=== PATIENT | male | born 1955 | race African-American/Black ===

== ENCOUNTER 2017-08-04 05:43 | Emergency (ER) | payer MEDICARE, OTHER ==
[~2017-08-04] VITALS: Ht 190.5 cm; Wt 113.4 kg
[2017-08-04 06:14] VITALS: BP 125/78
== END 2017-08-04 07:07 | disposition home or self-care (01) ==
LOC: ER 05:45
DX: R04.0 Epistaxis (principal); F32.9 Major depressive disorder, single episode, unspecified
CPT/HCPCS: A4606; Z7502; Z7610